=== PATIENT | female | born 1995 | race African-American/Black ===

== ENCOUNTER 2018-12-12 11:01 | Observation (INO) | payer BC, OTHER ==
[~2018-12-12] VITALS: Ht 180.3 cm; Wt 112.5 kg
[~2018-12-12 11:01] MED LIST: DESO1TAB4 PO; METR500T PO
[2018-12-12] MEDS ORDERED: CIPR500T78 PO (12:10)
--- NOTE | 2018-12-12 13:22 | ED Head Injury ---
General Chief Complaint: Trauma-Non Activation Stated Complaint: LOSS OF CONSCIOUSNESS Nursing Triage Note: PT FELL IN SHOWER PASSED OUT HEAD AND NECK HURT, STATES NOT FEELING WELL Source: patient Exam Limitations: no limitations History of Present Illness Date Seen by Provider: Dec 12, 2018 Time Seen by Provider: 13:22 Initial Comments 23-year-old female patient presents to the emergency department with complaints of "passing out" while in the shower this a.m. Patient reports headache and neck pain. Also reports overall not feeling well. Allergies and Home Medications Allergies Coded Allergies: No Known Drug Allergies (Unverified , 08/15/15) Home Medications Ciprofloxacin HCl 500 Mg Tablet, 500 MG PO BID, (Reported) Past Mmmlffn-Ogzmie-Diveph Hx Patient Social History Alcohol Use: Occasionally Uses Recreational Drug Use: No Smoking Status: Never a Smoker Recent Foreign Travel: No Contact w/Someone Who Travel: No Recent Infectious Disease Expo: No Recent Hopitalizations: No Past Medical History Surgeries: Yes Gallbladder, Orthopedic Respiratory: No Cardiac: No Neurological: No Reproductive Disorders: No Gastrointestinal: No Musculoskeletal: No Cancer: No Psychosocial: Yes ADD/ADHD Physical Exam Vital Signs Vital Signs - First Documented 12/12/18 12:04 Temp 97.9 Pulse 89 Resp 18 B/P (MAP) 139/79 (99) Pulse Ox 98 Capillary Refill : Less Than 3 Seconds Height, Weight, BMI Height: 5'11.00" Weight: 225lbs. oz. 102.428985di; BMI Method:Stated Progress/Results/Core Measures Results/Orders Lab Results Laboratory Tests Test 12/12/18 13:45 12/12/18 14:06 Range/Units Urine Color YELLOW Urine Clarity CLEAR Urine pH 6 5-9 Urine Specific [place] 1.020 1.016-1.022 Urine Protein 1+ H NEGATIVE Urine Glucose (UA) NEGATIVE NEGATIVE Urine Ketones NEGATIVE NEGATIVE Urine Nitrite NEGATIVE NEGATIVE Urine Bilirubin NEGATIVE NEGATIVE Urine Urobilinogen NORMAL NORMAL MG/DL Urine Leukocyte Esterase NEGATIVE NEGATIVE Urine RBC (Auto) 2+ H NEGATIVE Urine RBC 2-5 H /HPF Urine WBC NONE /HPF Urine Squamous Epithelial Cells 10-25 H /HPF Urine Crystals NONE /LPF Urine Bacteria TRACE /HPF Urine Casts NONE /LPF Urine Mucus LARGE H /LPF Urine Culture Indicated NO Urine Opiates Screen NEGATIVE NEGATIVE Urine Oxycodone Screen NEGATIVE NEGATIVE Urine Methadone Screen NEGATIVE NEGATIVE Urine Propoxyphene Screen NEGATIVE NEGATIVE Urine Barbiturates Screen NEGATIVE NEGATIVE Ur Tricyclic Antidepressants Screen NEGATIVE NEGATIVE Urine Phencyclidine Screen NEGATIVE NEGATIVE Urine Amphetamines Screen NEGATIVE NEGATIVE Urine Methamphetamines Screen NEGATIVE NEGATIVE Urine Benzodiazepines Screen NEGATIVE NEGATIVE Urine Cocaine Screen NEGATIVE NEGATIVE Urine Cannabinoids Screen POSITIVE H NEGATIVE White Blood Count 5.4 4.3-11.0 10^3/uL Red Blood Count 4.74 4.35-5.85 10^6/uL Hemoglobin 14.2 11.5-16.0 G/DL Hematocrit 41 35-52 % Mean Corpuscular Volume 86 80-99 FL Mean Corpuscular Hemoglobin 30 25-34 PG Mean Corpuscular Hemoglobin Concent 35 32-36 G/DL Red Cell Distribution Width 12.1 10.0-14.5 % Platelet Count 333 130-400 10^3/uL Mean Platelet Volume 9.3 7.4-10.4 FL Neutrophils (%) (Auto) 37 L 42-75 % Lymphocytes (%) (Auto) 55 H 12-44 % Monocytes (%) (Auto) 7 0-12 % Eosinophils (%) (Auto) 1 0-10 % Basophils (%) (Auto) 0 0-10 % Neutrophils # (Auto) 2.0 1.8-7.8 X 10^3 Lymphocytes # (Auto) 2.9 1.0-4.0 X 10^3 Monocytes # (Auto) 0.4 0.0-1.0 X 10^3 Eosinophils # (Auto) 0.1 0.0-0.3 10^3/uL Basophils # (Auto) 0.0 0.0-0.1 10^3/uL Sodium Level 141 135-145 MMOL/L Potassium Level 3.8 3.6-5.0 MMOL/L Chloride Level 106 98-107 MMOL/L Carbon Dioxide Level 28 21-32 MMOL/L Anion Gap 7 5-14 MMOL/L Blood Urea Nitrogen 10 7-18 MG/DL Creatinine 0.90 0.60-1.30 MG/DL Estimat Glomerular Filtration Rate > 60 BUN/Creatinine Ratio 11 Glucose Level 85 70-105 MG/DL Calcium Level 9.7 8.5-10.1 MG/DL Corrected Calcium 8.5-10.1 MG/DL Total Bilirubin 0.4 0.1-1.0 MG/DL Aspartate Amino Transf (AST/SGOT) 24 5-34 U/L Alanine Aminotransferase (ALT/SGPT) 28 0-55 U/L Alkaline Phosphatase 72 40-136 U/L Troponin I < 0.028 <0.028 NG/ML Total Protein 8.0 6.4-8.2 GM/DL Albumin 4.6 H 3.2-4.5 GM/DL TSH Baxter Testing 0.93 0.35-4.94 UIU/ML Acetaminophen Level < 10 L 10-30 UG/ML Serum Alcohol < 10 <10 MG/DL My Orders Orders - GEMMA DENNIS Acetaminophen (12/12/18 13:38) Alcohol (12/12/18 13:38) Cbc With Automated Diff (12/12/18 13:38) Comprehensive Metabolic Panel (12/12/18 13:38) Drug Screen Stat (Urine) (12/12/18 13:38) Thyroid Analyzer (12/12/18 13:38) Troponin I (12/12/18 13:38) Ua Culture If Indicated (12/12/18 13:38) Ct Head/Cervical Spine Wo (12/12/18 13:38) Saline Lock/Iv-Start (12/12/18 13:38) Urine Bedside (12/12/18 13:38) Ekg Tracing (12/12/18 13:38) Ondansetron Injection (Zofran Injectio (12/12/18 13:45) Acetaminophen Tablet (Tylenol Tablet) (12/12/18 13:38) Ns Iv 1000 Ml (Sodium Chloride 0.9%) (12/12/18 13:38) Chest 1 View, Ap/Pa Only (12/12/18 13:41) Ondansetron Injection (Zofran Injectio (12/12/18 15:30) Ns Iv 1000 Ml (Sodium Chloride 0.9%) (12/12/18 15:18) Medications Given in ED Current Medications Medications Dose Ordered Sig/Tulio Route Start Time Stop Time Status Last Admin Dose Admin Ondansetron HCl 4 mg ONCE ONCE IVP 12/12/18 13:45 12/12/18 13:46 DC 12/12/18 14:10 4 MG Ondansetron HCl 4 mg ONCE ONCE IVP 12/12/18 15:30 12/12/18 15:31 DC 12/12/18 15:59 4 MG Vital Signs/I&O 12/12/18 12:04 Temp 97.9 Pulse 89 Resp 18 B/P (MAP) 139/79 (99) Pulse Ox 98 Blood Pressure Mean: 99 Initial ECG Impression Date: Dec 12, 2018 Initial ECG Impression Time: 13:58 Initial ECG Rate: 77 Initial ECG Rhythm: Normal Sinus Initial ECG Intervals: Normal Initial ECG Impression: Normal Initial ECG Comparisson: No Previous ECG Available Comment ECG reviewed and discussed with Dr. Wilson. Departure Impression Primary Impression: Seizure Disposition: 09 ADMITTED INPATIENT Condition: Stable Admissions Decision to Admit Reason: Admit from ER (General) Decision to Admit/Date: Dec 12, 2018 Time/Decision to Admit Time: 16:25 Departure-Patient Inst. Referrals: [facility] (PCP) Primary Care Physician GEMMA DENNIS Dec 12, 2018 13:22
[2018-12-12] MEDS ORDERED: NS IV 1000 ML 1,000 ML IV SCH ×2 (13:38→15:18)
[2018-12-12] MEDS ORDERED: ACETAMINOPHEN 500 MG TAB (TYLENOL) PO STA (13:38)
[2018-12-12] MEDS ORDERED: ONDANSETRON 4 MG/2 ML (SDV) Z0FRAN IVP ONE ×2 (13:45→15:30)
[2018-12-12 13:52] LABS: BILIRUBIN,URINE NEGATIVE (NEGATIVE); CLARITY,URINE CLEAR; COLOR,URINE YELLOW; GLUCOSE, URINE (UA) NEGATIVE (NEGATIVE); KETONES,URINE NEGATIVE (NEGATIVE); LEUKOCYTE ESTERASE ,URINE NEGATIVE (NEGATIVE); NITRITE,URINE NEGATIVE (NEGATIVE); PH,URINE 6 (5-9); PROTEIN,URINE 1+ (NEGATIVE); UROBILINOGEN,URINE NORMAL (NORMAL)
[2018-12-12 14:09] LABS: AMPHETAMINE SCREEN, URINE NEGATIVE (NEGATIVE); BARBITURATE SCREEN URINE NEGATIVE (NEGATIVE); BENZODIAZEPINES SCREEN URINE NEGATIVE (NEGATIVE); CANNABINOID SCREEN, URINE POSITIVE (NEGATIVE); COCAINE SCREEN URINE NEGATIVE (NEGATIVE); METHADONE STAT NEGATIVE (NEGATIVE); METHAMPHETAMINE SCREEN URINE S NEGATIVE (NEGATIVE); OPIATE SCREEN URINE NEGATIVE (NEGATIVE); OXYCODONE STAT NEGATIVE (NEGATIVE); PROPOXYPHENE STAT NEGATIVE (NEGATIVE); TRICYCLIC ANTIDEPRESSANTS SCRE NEGATIVE (NEGATIVE)
[2018-12-12 14:12] LABS: BASOPHILS % (AUTO) 0 % (0-10); EOSINOPHILS # (AUTO) 0.1 10^3/uL (0.0-0.3); EOSINOPHILS % (AUTO) 1 % (0-10); HEMATOCRIT 41 % (35-52); HEMOGLOBIN 14.2 G/DL (11.5-16.0); LYMPHOCYTES # (AUTO) 2.9 X 10^3 (1.0-4.0); LYMPHOCYTES % (AUTO) 55 % (12-44); MEAN CORPUSCULAR HEMOGLOBIN 30 PG (25-34); MEAN CORPUSCULAR HGB CONC 35 G/DL (32-36); MEAN CORPUSCULAR VOLUME 86 FL (80-99); MEAN PLATELET VOLUME 9.3 FL (7.4-10.4); MONOCYTES # (AUTO) 0.4 X 10^3 (0.0-1.0); MONOCYTES % (AUTO) 7 % (0-12); NEUTROPHILS % (AUTO) 37 % (42-75); PLATELET COUNT 333 10^3/uL (130-400); RED CELL DISTRIBUTION WIDTH 12.1 % (10.0-14.5); WHITE BLOOD COUNT 5.4 10^3/uL (4.3-11.0)
[2018-12-12 14:15] LABS: BACTERIA,URINE TRACE /HPF
[2018-12-12 14:31] LABS: ALANINE AMINOTRANSFERASE 28 U/L (0-55); ALBUMIN 4.6 GM/DL (3.2-4.5); ALKALINE PHOSPHATASE 72 U/L (40-136); BILIRUBIN,TOTAL 0.4 MG/DL (0.1-1.0); BUN/CREATININE RATIO 11; CALCIUM 9.7 MG/DL (8.5-10.1); CARBON DIOXIDE 28 MMOL/L (21-32); CHLORIDE 106 MMOL/L (98-107); GFR ESTIMATED > 60; GLUCOSE 85 MG/DL (70-105); POTASSIUM 3.8 MMOL/L (3.6-5.0); SODIUM 141 MMOL/L (135-145)
[2018-12-12 14:43] LABS: ACETAMINOPHEN < 10 UG/ML (10-30)
[2018-12-12 14:51] LABS: TSH (THYROID ANALYZER) 0.93 UIU/ML (0.35-4.94)
--- NOTE | 2018-12-12 16:47 | Diagnostic Imaging Report ---
PROCEDURE: CT head and CT cervical spine without contrast. TECHNIQUE: Multiple contiguous axial images were obtained through the brain and cervical spine without the use of intravenous contrast. Sagittal and coronal reformations through the cervical spine were then performed. INDICATION: Fall with right-sided head and neck pain. COMPARISON: No prior studies are available for comparison. FINDINGS: CT head: The ventricles and sulci are within normal limits. No sulcal effacement, midline shift or hemorrhage is detected. The cisterns are patent. The visualized paranasal sinuses are clear. IMPRESSION: No acute intracranial process is detected. CT cervical spine: Alignment is normal. No fracture or subluxation is seen. The prevertebral tissues are within normal limits. Odontoid is intact. IMPRESSION: No acute bony abnormality is detected. Dictated by: Dictated on workstation # [id number]
--- NOTE | 2018-12-12 16:47 | Diagnostic Imaging Report ---
INDICATION: Fall. Trauma. COMPARISON: 06/11/2011. FINDINGS: Single frontal view of the chest demonstrates normal heart size and pulmonary vascularity. The lungs are well aerated and clear. No large pleural effusion or pneumothorax is seen. The visualized osseous structures show no acute abnormalities. IMPRESSION: 1. No acute cardiopulmonary process. Dictated by: Dictated on workstation # [id number]
--- OUTSIDE RECORDS SUMMARY | 2018-12-12 17:10 | XMS REPORT ---
Author Chris Mccauley Organization [employer] Address Unknown Phone Unavailable Care Team Providers Care Acid Tester Name Role Phone Chris Baez CP Unavailable Allergies No Known Allergies Problems No Known Problems Medications Medication Code System Code Instructions Start Date End Date Status Dosage Vyvanse [facility] [address]-59 30 MG Orally Once a day Oct 07, 2015 1 capsule in the morning Results No Known Results Summary Purpose [employer] Submission
--- OUTSIDE RECORDS SUMMARY | 2018-12-12 17:10 | XMS REPORT ---
Author Author Sherrie Byers Organization [employer] Address Unknown Phone Unavailable Care Team Providers Care Shaker Washer Name Role Phone Sherrie Byers CP Unavailable Allergies, Adverse Reactions, Alerts Substance Reaction Event Type N.K.D.A. Info Not Available Non Drug Allergy Problems Problem Type Condition Code Onset Dates Condition Status Assessment Attention and concentration deficit R41.840 Active Medications Medication Code System Code Instructions Start Date End Date Status Dosage Vyvanse [facility] [address]-21 30 MG Orally Once a day Oct 07, 2015 1 capsule in the morning Multivitamin Gummies Adult [facility] [address] Orally not defined Procedures Procedure Coding System Code Date DSCHRG MED/CURRENT MED MERGE CPT-4 1111F Oct 07, 2015 NEW PATIENTLEVEL III CPT-4 33476 Oct 07, 2015 Vital Signs Date/Time: Oct 07, 2015 Blood Pressure Systolic 110 mm Hg Cardiac Monitoring Heart Rate 78 /min Temperature 97.5 F BMI 34.97 Index Weight 230 lbs Height 68 in Blood Pressure Diastolic 78 mm Hg Results No Known Results Summary Purpose [employer] Submission
--- OUTSIDE RECORDS SUMMARY | 2018-12-12 17:10 | XMS REPORT ---
Author Author JENI MALIK [facility] Address [address] [place] [address] Care Team Providers Care Gambling Broker Name Role Phone JENI MALIK Unavailable PROBLEMS Type Condition ICD9-CM Code KLD89-GT Code Onset Dates Condition Status SNOMED Code Problem PCOS (polycystic ovarian syndrome) E28.2 Active 09344231 Problem Attention 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 Active 59070907 Problem Insomnia, unspecified type G47.00 Active 348802749 ALLERGIES No Information ENCOUNTERS Encounter Location Date Diagnosis [facility] [id number] [place] [id number] Oct, [facility] [address] [address] Sep, Attention 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 ; Hidradenitis suppurativa L73.2 ; PCOS (polycystic ovarian syndrome) E28.2 and High risk medication use Z79.899 [facility] [id number] [place] [phone] Sep, Dental examination Z01.20 [facility] [id number] [place] [address] Sep, Mouth pain K13.79 [facility] [address] [address] Sep, Attention 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 [facility] [id number] [place] [address] Aug, Attention 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 [facility] [address] [address] Jul, Attention 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 and High risk medication use Z79.899 [place] [id number] [place] [phone] 27 Jun, 2018 Attention 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 and Missed menses N92.6 [place] [address] [address] 14 Jun, 2018 Pneumonia of right lung due to infectious organism, unspecified part of lung J18.9 [place] [address] [address] Apr, Insomnia, unspecified type G47.00 [place] [address] [address] Apr, Nonintractable episodic headache, unspecified headache type R51 ; Fatigue, unspecified type R53.83 ; Exposure to residence or prolonged visit at high altitude, initial encounter W94.11XA and Insomnia, unspecified type G47.00 [place] [id number] [place] [address] Aug, Dental examination Z01.20 [place] [id number] [place] [address] May, [place] [id number] [place] [phone] May, Physical exam V70.9 IMMUNIZATIONS No Known Immunizations SOCIAL HISTORY Never Assessed REASON FOR VISIT dental referral from walk-in [facility] Activity Details Follow Up prn Reason: VITAL SIGNS MEDICATIONS Medication Instructions Dosage Frequency Start Date End Date Duration Status Methylphenidate HCl ER 27 MG Orally Once a day 1 tablet in the morning 24h Sep, 28 days Active RESULTS No Results PROCEDURES Procedure Date Ordered Result Body Site INTRAORL-PERIAPICAL 1 FILM 69773 Sep 10, 2018 SCREENING OF A PATIENT Sep 10, 2018 Billing Notes on claim Sep 10, 2018 INSTRUCTIONS MEDICATIONS ADMINISTERED No Known Medications MEDICAL (GENERAL) HISTORY Type Description Date Medical History ADHD Medical History hidradenitis supprativa Surgical History cholecystectomy Surgical History Left arm repair Hospitalization History Surgery
--- OUTSIDE RECORDS SUMMARY | 2018-12-12 17:10 | XMS REPORT ---
Author Author Sherrie Byers Organization [employer] Address Unknown Phone Unavailable Care Team Providers Care Weight Analyst Name Role Phone Sherrie Byers CP Unavailable Allergies, Adverse Reactions, Alerts Substance Reaction Event Type N.K.D.A. Info Not Available Non Drug Allergy Problems Problem Type Condition Code Onset Dates Condition Status Assessment Attention and concentration deficit R41.840 Active Medications Medication Code System Code Instructions Start Date End Date Status Dosage Multivitamin Gummies Adult [facility] [address] Orally not defined Vyvanse [facility] [address]-95 30 MG Orally Once a day Oct 07, 2015 1 capsule in the morning Procedures Procedure Coding System Code Date DSCHRG MED/CURRENT MED MERGE CPT-4 1111F May 12, 2016 ESTAB PATIENTLEVEL III CPT-4 98530 May 12, 2016 Vital Signs Date/Time: May 12, 2016 Blood Pressure Diastolic 82 mm Hg Blood Pressure Systolic 138 mm Hg Temperature 98.1 F BMI 35.27 Index Weight 232 lbs Height 68 in Results No Known Results Summary Purpose eClinicalWorks Submission
--- OUTSIDE RECORDS SUMMARY | 2018-12-12 17:10 | XMS REPORT ---
Author Author DIANA MORENO [facility] Address [address] [place] [address] Care Team Providers Care It Project Coordinator Name Role Phone DIANA MORENO Unavailable PROBLEMS Type Condition ICD9-CM Code JMR52-MI Code Onset Dates Condition Status SNOMED Code Problem Missed menses N92.6 Active 88617252 Problem Attention 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 Active 49858140 Problem Insomnia, unspecified type G47.00 Active 519188327 ALLERGIES No Known Allergies ENCOUNTERS Encounter Location Date Diagnosis [place] [address] [address] Sep, [place] [address] [address] 04 Sep, 2018 Dental examination Z01.20 [facility] [address] [address] Sep, Mouth pain K13.79 [place] [address] [address] Sep, Attention 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 [place] [address] [address] Aug, Attention 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 [place] [address] [address] Jul, Attention 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 and High risk medication use Z79.899 [place] [address] [address] Jun, Attention 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 and Missed menses N92.6 [facility] [address] [place] [address] 14 Jun, 2018 Pneumonia of right lung due to infectious organism, unspecified part of lung J18.9 [place] [id number] [place] [address] Apr, Insomnia, unspecified type G47.[address] [address] Apr, Nonintractable episodic headache, unspecified headache type R51 ; Fatigue, unspecified type R53.83 ; Exposure to residence or prolonged visit at high altitude, initial encounter W94.11XA and Insomnia, unspecified type G47.00 [place] [id number] [place] [address] Aug, Dental examination Z01.20 [place] [id number] [place] [address] May, [place] [id number] [place] [address] May, Physical exam V70.9 IMMUNIZATIONS No Known Immunizations SOCIAL HISTORY Never Assessed REASON FOR VISIT Tooth pain on right bottom jaw, pain is pulsating - SELENE Ruiz PLAN OF CARE Activity Details Follow Up see dentist CINDY Reason: VITAL SIGNS Height 70 in 2018-09-10 Weight 239.2 lbs 2018-09-10 Temperature 97.8 degrees Fahrenheit 2018-09-10 Heart Rate 80 bpm 2018-09-10 Respiratory Rate 18 2018-09-10 BMI 34.32 kg/m2 2018-09-10 Blood pressure systolic 120 mmHg 2018-09-10 Blood pressure diastolic 86 mmHg 2018-09-10 MEDICATIONS Medication Instructions Dosage Frequency Start Date End Date Duration Status Methylphenidate HCl ER 27 MG Orally Once a day 1 tablet in the morning 24h Sep, 28 days Active Amoxicillin 875 MG Orally every 12 hrs 1 tablet 12h Sep, 10 day (s) Active RESULTS No Results PROCEDURES No Known procedures INSTRUCTIONS MEDICATIONS ADMINISTERED No Known Medications MEDICAL (GENERAL) HISTORY Type Description Date Medical History ADHD Surgical History cholecystectomy Surgical History Left arm repair Hospitalization History Surgery
--- OUTSIDE RECORDS SUMMARY | 2018-12-12 17:11 | XMS REPORT ---
Author Author SHIMA RETANA [facility] Address Unknown Care Team Providers Care Instructor Warper Name Role Phone SHIMA RETANA Unavailable PROBLEMS Type Condition ICD9-CM Code PWG79-YR Code Onset Dates Condition Status SNOMED Code Assessment Dental examination Z01.20 Aug, Active 485578889 ALLERGIES Substance Reaction Event Type Date Status N.K.D.A. Unknown Non Drug Allergy Aug, Unknown SOCIAL HISTORY No smoking Hx information available PLAN OF CARE VITAL SIGNS Height 70 in 2016-08-09 Blood pressure systolic 118 mmHg 2016-08-09 Blood pressure diastolic 83 mmHg 2016-08-09 MEDICATIONS Medication Instructions Dosage Frequency Start Date End Date Duration Status Amoxicillin 500 MG Orally four times a day 1 tablet 6h Aug,Aug 7 days Active [place] 5-325 MG Orally every 6 hrs 1 tablet as needed 6h Aug,Aug 4 days Active Vyvanse 30 MG Orally Once a day 1 capsule in the morning 24h Active RESULTS No Results PROCEDURES Procedure Date Ordered Related Diagnosis Body Site LTD ORAL EVALUATION - PROBLEM FOCUS Aug 09, 2016 INTRAORL-PERIAPICAL 1 FILM 25840 Aug 09, 2016 BITEWINGS - TWO FILMS Aug 09, 2016 INTRAORL-PERIAPICAL EA ADD FILM Aug 09, 2016 IMMUNIZATIONS No Known Immunizations
--- OUTSIDE RECORDS SUMMARY | 2018-12-12 17:11 | XMS REPORT ---
Author Author GIGI GERONIMO Organization [facility] Address [address] [place] [address] Care Team Providers Care Disaster Recovery Specialist Name Role Phone GIGI GERONIMO Unavailable PROBLEMS Type Condition ICD9-CM Code TMY88-GG Code Onset Dates Condition Status SNOMED Code Problem Insomnia, unspecified type G47.00 Active 223207194 ALLERGIES No Known Allergies ENCOUNTERS Encounter Location Date Diagnosis [place] [address] [address] Apr, Insomnia, unspecified type G47.[address] [address] Apr, Nonintractable episodic headache, unspecified headache type R51 ; Fatigue, unspecified type R53.83 ; Exposure to residence or prolonged visit at high altitude, initial encounter W94.11XA and Insomnia, unspecified type G47.00 [place] [id number] [place] [address] Aug, Dental examination Z01.20 [facility] [place] [address] [address] May, [facility] [place] [address] [address] May, Physical exam V70.9 IMMUNIZATIONS Vaccine Route Administration Date Status TORADOL (IM) 30 MG/ML (UP TO 15 MG) IM Intramuscular May 01, 2018 Administered SOCIAL HISTORY Never Assessed REASON FOR VISIT Fatigue, states she thinks it might be altitude sickness, head pressure, blurry vision, lack of sleep and appetite. LUCIUS Linares PLAN OF CARE Activity Details Follow Up prn Reason:headache, fatigue VITAL SIGNS Height 70 in 2018-05-01 Weight 225.4 lbs 2018-05-01 Temperature 98.3 degrees Fahrenheit 2018-05-01 Heart Rate 82 bpm 2018-05-01 Respiratory Rate 18 2018-05-01 BMI 32.34 kg/m2 2018-05-01 Blood pressure systolic 124 mmHg 2018-05-01 Blood pressure diastolic 86 mmHg 2018-05-01 MEDICATIONS Medication Instructions Dosage Frequency Start Date End Date Duration Status Vyvanse 30 MG Orally Once a day 1 capsule in the morning 24h Active Sprintec 28 0.25-35 MG-MCG Orally Once a day 1 tablet 24h Active Zolpidem Tartrate 10 mg Orally Once a day 1 tablet at bedtime as needed 24h Apr, 05 days Active RESULTS No Results PROCEDURES Procedure Date Ordered Result Body Site COMPLETE CBC W/AUTO DIFF WBC May 01, 2018 COMPREHEN METABOLIC PANEL May 01, 2018 THER/PROPH/DIAG INJ, SC/IM May 01, 2018 CHORIONIC GONADOTROPIN ASSAY May 01, 2018 ASSAY OF FREE THYROXINE May 01, 2018 ASSAY THYROID STIM HORMONE May 01, 2018 TORADOL (IM) 30 MG/ML (UP TO 15 MG) May 01, 2018 VENIPUNCT, ROUTINE* May 01, 2018 INSTRUCTIONS MEDICATIONS ADMINISTERED No Known Medications MEDICAL (GENERAL) HISTORY Type Description Date Medical History ADHD Surgical History cholecystectomy Surgical History Left arm repair Hospitalization History Surgery
--- OUTSIDE RECORDS SUMMARY | 2018-12-12 17:11 | XMS REPORT ---
Author Author NEMESIO CHAN [facility] Address [address] [place] [address] Care Team Providers Care Automotive Shop Foreman Name Role Phone NEMESIO CHAN Unavailable PROBLEMS Type Condition ICD9-CM Code KWO60-DZ Code Onset Dates Condition Status SNOMED Code Problem Missed menses N92.6 Active 58711238 Problem Attention 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 Active 72262723 Problem Insomnia, unspecified type G47.00 Active 243322353 ALLERGIES No Known Allergies ENCOUNTERS Encounter Location Date Diagnosis [facility] [address] [address] Jun, Attention 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 and Missed menses N92.6 [facility] [address] [address] 14 Jun, 2018 Pneumonia of right lung due to infectious organism, unspecified part of lung J18.9 [facility] [id number] [place] [address] Apr, Insomnia, unspecified type G47.00 [facility] [address] [address] Apr, Nonintractable episodic headache, unspecified headache type R51 ; Fatigue, unspecified type R53.83 ; Exposure to residence or prolonged visit at high altitude, initial encounter W94.11XA and Insomnia, unspecified type G47.00 [facility] [address] [address] Aug, Dental examination Z01.20 [facility] [address] [phone] May, [facility] [address] [facility] [id number] [address] 18 May, 2016 Physical exam V70.9 IMMUNIZATIONS No Known Immunizations SOCIAL HISTORY Never Assessed REASON FOR VISIT est care-Jessica, Would like to discuss ADHD medication PLAN OF CARE Activity Details Follow Up 2-4wk Reason:PAP/ADD VITAL SIGNS Height 70 in 2018-07-04 Weight 231.5 lbs 2018-07-04 Temperature 97.5 degrees Fahrenheit 2018-07-04 Heart Rate 88 bpm 2018-07-04 Respiratory Rate 18 2018-07-04 BMI 33.21 kg/m2 2018-07-04 Blood pressure systolic 110 mmHg 2018-07-04 Blood pressure diastolic 72 mmHg 2018-07-04 MEDICATIONS Medication Instructions Dosage Frequency Start Date End Date Duration Status Sprintec 28 0.25-35 MG-MCG Orally Once a day 1 tablet 24h Active RESULTS Name Result Date Reference Range TEST, URINE (IN HOUSE) 2018-07-04 RESULTS Negative Lot # [id number] Control + Exp date 12/2019 PROCEDURES Procedure Date Ordered Result Body Site URINE TEST Jul 04, 2018 INSTRUCTIONS MEDICATIONS ADMINISTERED No Known Medications MEDICAL (GENERAL) HISTORY Type Description Date Medical History ADHD Surgical History cholecystectomy Surgical History Left arm repair Hospitalization History Surgery
--- OUTSIDE RECORDS SUMMARY | 2018-12-12 17:11 | XMS REPORT ---
Author [facility] Address [address] [place] [address] Care Team Providers Care Rice Farmworker Name Role Phone NEMESIO CHAN Unavailable PROBLEMS Type Condition ICD9-CM Code AGI12-AO Code Onset Dates Condition Status SNOMED Code Problem Missed menses N92.6 Active 39526941 Problem Attention 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 Active 77669340 Problem Insomnia, unspecified type G47.00 Active 902606762 ALLERGIES No Information ENCOUNTERS Encounter Location Date Diagnosis [facility] [place] [address] [address] Sep, [facility] [place] [id number] [place] [address] Aug, Attention 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 [facility] [place] [address] [address] Jul, Attention 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 and High risk medication use Z79.899 [facility] [place] [id number] [place] [address] Jun, Attention 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 and Missed menses N92.6 [facility] [id number] [place] [address] 14 Jun, 2018 Pneumonia of right lung due to infectious organism, unspecified part of lung J18.9 [facility] [place] [id number] [place] [address] Apr, Insomnia, unspecified type G47.00 [facility] [place] [id number] [place] [address] Apr, Nonintractable episodic headache, unspecified headache type R51 ; Fatigue, unspecified type R53.83 ; Exposure to residence or prolonged visit at high altitude, initial encounter W94.11XA and Insomnia, unspecified type G47.00 [facility] [place] [address] [facility] [id number] [place] [address] Aug, Dental examination Z01.20 [facility] [address] [id number] [address] May, [facility] [address] [facility] [id number] [address] May, Physical exam V70.9 IMMUNIZATIONS No Known Immunizations SOCIAL HISTORY Never Assessed REASON FOR VISIT Concerta Refill PLAN OF CARE VITAL SIGNS MEDICATIONS Medication Instructions Dosage Frequency Start Date End Date Duration Status Methylphenidate HCl ER 27 MG Orally Once a day 1 tablet in the morning 24h Aug, 28 days Active RESULTS No Results PROCEDURES No Known procedures INSTRUCTIONS MEDICATIONS ADMINISTERED No Known Medications MEDICAL (GENERAL) HISTORY Type Description Date Medical History ADHD Surgical History cholecystectomy Surgical History Left arm repair Hospitalization History Surgery
--- OUTSIDE RECORDS SUMMARY | 2018-12-12 17:11 | XMS REPORT ---
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 Active 91368275 Problem Insomnia, unspecified type G47.00 Active 361861731 ALLERGIES No Known Allergies ENCOUNTERS Encounter Location Date Diagnosis [facility] [address] [address] Jun, Attention 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 and Missed menses N92.6 [facility] [address] [address] 14 Jun, 2018 Pneumonia of right lung due to infectious organism, unspecified part of lung J18.9 [facility] [id number] [place] [address] Apr, Insomnia, unspecified type G47.00 [facility] [address] [address] Apr, Nonintractable episodic headache, unspecified headache type R51 ; Fatigue, unspecified type R53.83 ; Exposure to residence or prolonged visit at high altitude, initial encounter W94.11XA and Insomnia, unspecified type G47.00 [facility] [address] [address] Aug, Dental examination Z01.20 [facility] [address] [address] May, [facility] [address] [facility] [id number] [place] [address] May, Physical exam V70.9 IMMUNIZATIONS No Known Immunizations SOCIAL HISTORY Never Assessed REASON FOR VISIT chest congestion, cough and shortness of breath x1 week JStrasserRN PLAN OF CARE Activity Details Follow Up if not improving with PCP or reg follow up Reason: VITAL SIGNS Height 70 in 2018-06-21 Weight 232.2 lbs 2018-06-21 Temperature 98.4 degrees Fahrenheit 2018-06-21 Heart Rate 76 bpm 2018-06-21 Respiratory Rate 20 2018-06-21 Oximetry 92 % 2018-06-21 BMI 33.31 kg/m2 2018-06-21 Blood pressure systolic 112 mmHg 2018-06-21 Blood pressure diastolic 80 mmHg 2018-06-21 MEDICATIONS Medication Instructions Dosage Frequency Start Date End Date Duration Status PredniSONE 20 mg Orally Once a day 2 tablet 24h Jun, Jun, 5 days Active Azithromycin 250 MG Orally Once a day as directed 24h Jun,Jun 5 day(s) Active Sprintec 28 0.25-35 MG-MCG Orally Once a day 1 tablet 24h Active Tessalon Perles 100 mg Orally Three times a day 1 capsule as needed 8h Jun, Jun, 5 days Active RESULTS No Results PROCEDURES No Known procedures INSTRUCTIONS MEDICATIONS ADMINISTERED No Known Medications MEDICAL (GENERAL) HISTORY Type Description Date Medical History ADHD Surgical History cholecystectomy Surgical History Left arm repair Hospitalization History Surgery
--- OUTSIDE RECORDS SUMMARY | 2018-12-12 17:11 | XMS REPORT ---
Author BAKARI Gaffney Organization [employer] Address Unknown Phone Unavailable Care Team Providers Care Wire Bender Name Role Phone BAKARI RIDDLE CP Unavailable Allergies No Known Allergies Problems No Known Problems Medications Medication Code System Code Instructions Start Date End Date Status Dosage Vyvanse [facility] [address]-60 30 MG Orally Once a day 1 capsule in the morning Results No Known Results Summary Purpose [employer] Submission
--- OUTSIDE RECORDS SUMMARY | 2018-12-12 17:11 | XMS REPORT ---
Author Author NEMESIO CHAN [facility] Address [address] [place] [address] Care Team Providers Care Field Marketing Associate Name Role Phone NEMESIO CHAN Unavailable PROBLEMS Type Condition ICD9-CM Code XKL42-ZG Code Onset Dates Condition Status SNOMED Code Problem Missed menses N92.6 Active 84382786 Problem Attention 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 Active 44161851 Problem Insomnia, unspecified type G47.00 Active 260663221 ALLERGIES No Information ENCOUNTERS Encounter Location Date Diagnosis [facility] [address] [address] Sep, [facility] [address] [address] Sep, Attention 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 [facility] [address] [address] Aug, Attention 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 [place] [address] [id number] [place] [address] Jul, Attention 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 and High risk medication use Z79.899 [facility] [id number] [place] [address] 27 Jun, 2018 Attention 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 and Missed menses N92.6 [facility] [id number] [place] [address] 14 Jun, 2018 Pneumonia of right lung due to infectious organism, unspecified part of lung J18.9 [facility] [id number] [place] [address] Apr, Insomnia, unspecified type G47.00 [facility] [address] [address] Apr, Nonintractable episodic headache, unspecified headache type R51 ; Fatigue, unspecified type R53.83 ; Exposure to residence or prolonged visit at high altitude, initial encounter W94.11XA and Insomnia, unspecified type G47.00 [place] [address], [place] [address] Aug, Dental examination Z01.20 [facility] [place] [id number] [address] May, [place] [id number] [address] May, Physical exam V70.9 IMMUNIZATIONS No Known Immunizations SOCIAL HISTORY Never Assessed REASON FOR VISIT Methypheidate resend PLAN OF CARE VITAL SIGNS MEDICATIONS Medication [...]
--- OUTSIDE RECORDS SUMMARY | 2018-12-12 17:11 | XMS REPORT ---
Author Sherrie Andrews [facility] e[employer] Address Unknown Phone Unavailable Care Team Providers Care Fire Alarm Mechanic Name Role Phone Sherrie Byers CP Unavailable Allergies, Adverse Reactions, Alerts Substance Reaction Event Type N.K.D.A. Info Not Available Non Drug Allergy Problems Problem Type Condition Code Onset Dates Condition Status Assessment Attention and concentration deficit R41.840 Active Assessment Encounter for test, result negative Z32.02 Active Problem Attention and concentration deficit R41.840 Active Assessment Encounter for general adult medical examination with abnormal findings Z00.01 Active Medications Medication Code System Code Instructions Start Date End Date Status Dosage Vyvanse [facility] [address]-67 30 MG Orally Once a day Oct 07, 2015 1 capsule in the morning Multivitamin Gummies Adult [facility] [address] Orally not defined Procedures Procedure Coding System Code Date [id number] YEARS CPT-4 99680 Aug 11, 2016 URINE TEST,WAIVED CPT-4 78430 Aug 11, 2016 Vital Signs Date/Time: Aug 11, 2016 Blood Pressure Systolic 122 mm Hg Cardiac Monitoring Heart Rate 84 /min Temperature 98.6 F BMI 33.45 Index Weight 220 lbs Height 68 in Blood Pressure Diastolic 70 mm Hg Results No Known Results Summary Purpose eClinicalWorks Submission
--- OUTSIDE RECORDS SUMMARY | 2018-12-12 17:11 | XMS REPORT | Continuity of Care Document ---
Author Author Ary PawanDell Adama [facility] Ary Galan [facility] Address Unknown Phone Unavailable Care Team Providers Care Register Of Wills Name Role Phone GIGI MCRAE M.D. PCP Insurance Providers Payer Name Policy Number Subscriber Name Relationship Workers Compensation [id number] Jenny Mcmahon 08 [employer] [id number] LisandroZeeh 03 Mother Chief Complaint and Reason for Visit Chief Complaint Abdominal Pain Reason for Visit [id number] Problems Active Problems Medical Problem Onset Date Status Acute tonsillitis Unknown Acute Amenorrhea 05/21/2014 Acute Attention deficit hyperactivity disorder 05/05/2011 Chronic Epigastric abdominal pain Unknown Acute Fever Unknown Acute Pelvic pain in female Unknown Acute Polycystic ovary syndrome Unknown Acute SCREEN FOR VENERAL DIS 05/21/2014 Acute Medications Current Home Medications Medication Dose Units Route Directions Days/Qty Instructions Start Date Lisdexamfetamine Dimesylate 30 Mg 30 Mg Oral Daily 12/19/15 Hydrocodone-Acetaminophen 1 Tab 1-2 Tab Oral Q4-6H as needed for Pain 15 12/19/15 Ondansetron 4 Mg 1-2 Tab Oral Every 6 Hours As Needed as needed for Nausea 15 12/19/15 Past Home Medications Medication Directions Ordered Status Atomoxetine Hcl 18 Mg Cap, 18 Mg Oral Noon 08/16/10 Discontinued Hydrocodone-Acetaminophen Tab, 1 Tab Oral Every 4 Hours As Needed 08/16/10 Discontinued Oxycodone W/ Acetaminophen 1 Tab Tab, 1 Tab Oral 4-6 Hours 06/24/11 Discontinued Ibuprofen 400 Mg Tab, 1 Tab Oral Three Times A Day 06/24/11 Discontinued Acetaminophen/Hydrocodone Bitart 7.5 Mg/15 Ml Liqd, 10 Ml Oral Every 8 Hours As Needed 10/01/13 Discontinued Social History Social History Problem Response Recorded Date/Time Smoking Status Former smoker 12/19/2015 5:20pm Query Response Start Date Stop Date Smoking Status Former smoker Hospital Discharge Instructions No hospital discharge instructions. Plan of Care Discharge Date 12/19/15 7:18pm Disposition 01 HOME, SELF-CARE Condition at Discharge Stable Instructions/Education Provided Abdominal Pain (ED) Prescriptions See Medication Section Referrals GIGI MCRAE M.D. - Additional Instructions/Education 1. Follow up with your doctor in 2-3 days. 2. Use pain medication as needed for pain, nausea medication as needed. Take Zantac 150mg (or generic - ranitidine) twice daily. 3. Rest and drink plenty of fluids. 4. Return to ER if worsening pain, repetitive vomiting, fever, or other new concerns. Functional Status No functional status results. Allergies, Adverse Reactions, Alerts Allergen Type Severity Reaction Status Last Updated No Known Drug Allergy Allergy Unknown Active 09/09/14 Immunizations No immunization records. Vital Signs Acute Vital Signs Vital Response Date/Time Blood Pressure 105/77 mm Hg 12/19/2015 6:46pm Blood Pressure Mean 86 mm Hg 12/19/2015 6:46pm Temperature (Fahrenheit) 98.1 degrees F (96.0 - 99.9) 12/19/2015 5:18pm Temperature (Calculated Celsius) 36.67727 degrees C 12/19/2015 5:18pm Temperature Source Oral 12/19/2015 5:18pm Pulse Pulse Rate (adult) 97 bpm (60 - 100) 06/15/2013 6:21pm Pulse Rate: ED 63 bpm 12/19/2015 6:46pm Respiratory Rate 16 breaths per minute (10 - 20) 12/19/2015 6:01pm Height (Feet) 5 ft 12/19/2015 5:18pm Height (Inches) 10 in. 12/19/2015 5:18pm Weight (Pounds) 215 lbs 12/19/2015 5:18pm Height 5 ft 10 in Weight 215 lb Body Mass Index 30.8 kg/m^2 Ambulatory Vital Signs Vital Response Date/Time Height 5 ft 9 in 05/21/2014 10:25am Weight 238 lbs 05/21/2014 10:25am Blood Pressure, Sitting, Left Arm 132/85 mm Hg 05/21/2014 10:25am Pulse Rate 90 bpm 05/21/2014 10:25am Body Surface Area 2.33 m2 05/21/2014 10:25am Body Mass Index 35.1 kg/m2 05/21/2014 10:25am Pulse Oximetry Pulse Oximetry 05/21/2014 10:25am Results Pending Laboratory Results Test Name Collection Date/Time Pending Microbiology Results Procedure Source Collection Date/Time Ambulatory Laboratory Results Test Name Result Units Flags Reference Result Date/Time Comments Chlamydia/GC Screen NEGATIVE 05/21/2014 1:28pm Procedures Procedure Status Date Provider(s) HYDRATION IV INFUSION INIT Completed 06/15/13 KIMBERLY MCLEAN M.D. THER/PROPH/DIAG INJ SC/IM Completed 10/01/13 [place] MAN M.D. THER/PROPH/DIAG INJ SC/IM Completed 10/01/13 [place] M.D. THER/PROPH/DIAG INJ SC/IM Completed 03/09/14 KIMBERLY MCLEAN M.D. Encounters Encounter Location Arrival/Admit Date Discharge/Depart Date Attending Provider Departed Emergency Room [facility] 12/19/15 5:17pm 7:18pm DAHLIA MAYES D.O. [facility] 11:07am GUERA LANDIS M.D Office Visit GUERA ARANDA 05/21/14 10:15am GUERA ARANDA M.D Registered Practice [facility] 05/21/14 10:15am GUERA ARANDA M.D [facility] 06/02/14 1:00am 2:57am KIMBERLY MCLEAN M.D. Departed Emergency Room [facility] 10/01/13 9:02pm 10:32pm [place] MAN M.D. Registered Referred [facility] 08/13/13 2:56pm STACIE DONALD M.D. Registered Referred [facility] 08/12/13 1:58pm STACIE DONALD M.D. Office Visit STACIE OLIVARESBANNER 08/12/13 1:00pm STACIE DONALD M.D. Registered Practice [facility] 08/12/13 1:00pm STACIE DONALD M.D. Departed Emergency Room [facility] 06/15/13 5:45pm 8:45pm KIMBERLY MCLEAN M.D. Recent Diagnosis
--- OUTSIDE RECORDS SUMMARY | 2018-12-12 17:11 | XMS REPORT ---
Author Author NEMESIO CHAN [facility] Address [address] [place] [address] Care Team Providers Care Stove Refinisher Name Role Phone NEMESIO CHAN Unavailable PROBLEMS Type Condition ICD9-CM Code FBO72-QC Code Onset Dates Condition Status SNOMED Code Problem Missed menses N92.6 Active 73652104 Problem Attention 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 Active 35887710 Problem Insomnia, unspecified type G47.00 Active 818113735 ALLERGIES No Information ENCOUNTERS Encounter Location Date Diagnosis [facility] [address] [address] Aug, [facility] [address] [address] Jul, Attention 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 and High risk medication use Z79.899 [facility] [address] [address] 27 Jun, 2018 Attention 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00 [facility] [address] [facility] [id number] [place] [address] Aug, Dental examination Z01.20 [facility] [address] [facility] [id number] [address] May, [facility] [address] [facility] [id number] [address] May, Physical exam V70.9 IMMUNIZATIONS No Known Immunizations SOCIAL HISTORY Never Assessed REASON FOR VISIT Controlled Med 07/29 PLAN OF CARE VITAL SIGNS MEDICATIONS Medication Instructions Dosage Frequency Start Date End Date Duration Status Methylphenidate HCl ER 27 MG Orally Once a day 1 tablet in the morning 24h Jul, Aug, 28 days Active RESULTS No Results PROCEDURES No Known procedures INSTRUCTIONS MEDICATIONS ADMINISTERED No Known Medications MEDICAL (GENERAL) HISTORY Type Description Date Medical History ADHD Surgical History cholecystectomy Surgical History Left arm repair Hospitalization History Surgery
--- OUTSIDE RECORDS SUMMARY | 2018-12-12 17:12 | XMS REPORT | Continuity of Care Document ---
Author Author [facility] Organization [facility] Address Unknown Phone Unavailable Allergies Active Description Code Type Severity Reaction Onset Reported/Identified Relationship to Patient Clinical Status Yes No Known Drug Allergies [id number] Drug Allergy Unknown N/A 08/15/2015 Medications There is no data. 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, bilateral Procedures Code Description [place] [address] REFRACTION 05/17/2017 78058 SPECIAL SERVICE/PROC/REPORT 05/17/2017 V2020 Vision svSpamLion frames purchases 05/18/2017 V2100 Lens spher single plano 4.00 05/18/2017 V2103 Spherocylindr 4.00d/12- 2.00d 05/18/2017 V2715 Prism lens/es 05/18/2017 V2750 Anti-reflective coating 05/18/2017 V2782 Lens, 1.54-1.65 p/1.60- 1.79g 05/18/2017 V2100 Lens spher single plano 4.00 06/12/2017 V2103 Spherocylindr 4.00d/12- 2.00d 06/12/2017 V2715 Prism lens/es 06/12/2017 V2762 Polarization, any lens 06/12/2017 V2782 Lens, 1.54-1.65 p/1.60- 1.79g 06/12/2017 V2020 Vision svcs frames purchases 07/17/2017 V2100 Lens spher single plano 4.00 07/17/2017 V2103 Spherocylindr 4.00d/12- 2.00d 07/17/2017 V2715 Prism lens/es 07/17/2017 V2744 Tint photochromatic lens/es 07/17/2017 V2750 Anti-reflective coating 07/17/2017 V2782 Lens, 1.54-1.65 p/1.60- 1.79g 07/17/2017 Results Test Result Range TEST, SERUM (QUAL) - 05/01/18 10:23 HCG, TOTAL, QL NEGATIVE See Note: Urine drug screening test - 12/12/18 13:45 Urine phencyclidine detection by screening method NEGATIVE NEGATIVE Urine benzodiazepines detection by screening method NEGATIVE NEGATIVE Urine cocaine detection NEGATIVE NEGATIVE Urine amphetamines detection by screening method NEGATIVE NEGATIVE Urine methamphetamine detection by screening method NEGATIVE NEGATIVE Urine cannabinoids detection by screening method POSITIVE NEGATIVE Urine opiates detection by screening method NEGATIVE NEGATIVE Urine barbiturates detection NEGATIVE NEGATIVE Screening urine tricyclic antidepressants detection NEGATIVE NEGATIVE Urine methadone detection by screening method NEGATIVE NEGATIVE Urine oxycodone detection NEGATIVE NEGATIVE Urine propoxyphene detection NEGATIVE NEGATIVE Complete urinalysis with reflex to culture - 12/12/18 13:45 Urine color determination YELLOW NRG Urine clarity determination CLEAR NRG Urine pH measurement by test strip 6 5-9 Specific gravity of urine by test strip 1.020 1.016- 1.022 Urine protein assay by test strip, semi-quantitative 1+ NEGATIVE Urine glucose detection by automated test strip NEGATIVE NEGATIVE Erythrocytes detection in urine sediment by light microscopy 2+ NEGATIVE Urine ketones detection by automated test strip NEGATIVE NEGATIVE Urine nitrite detection by test strip NEGATIVE NEGATIVE Urine total bilirubin detection by test strip NEGATIVE NEGATIVE Urine urobilinogen measurement by automated test strip (mass/volume) NORMAL NORMAL Urine leukocyte esterase detection by dipstick NEGATIVE NEGATIVE Automated urine sediment erythrocyte count by microscopy (number/high power field) [HPF] NRG Automated urine sediment leukocyte count by microscopy (number/high power field ) NONE NRG Bacteria detection in urine sediment by light microscopy TRACE NRG Squamous epithelial cells detection in urine sediment by light microscopy 1025 NRG Crystals detection in urine sediment by light microscopy NONE NRG Casts detection in urine sediment by light microscopy NONE NRG Mucus detection in urine sediment by light microscopy LARGE NRG Complete urinalysis with reflex to culture NO NRG Complete blood count (CBC) with automated white blood cell (WBC) differential - 12/12/18 14:06 Blood leukocytes automated count (number/volume) 5.4 10*3/uL 4.3-11.0 Blood erythrocytes automated count (number/volume) 4.74 10*6/uL 4.35-5.85 Venous blood hemoglobin measurement (mass/volume) 14.2 g/dL 11.5-16.0 Blood hematocrit (volume fraction) 41 % 35-52 Automated erythrocyte mean corpuscular volume 86 [foz_us] 80-99 Automated erythrocyte mean corpuscular hemoglobin (mass per erythrocyte) 30 pg 25-34 Automated erythrocyte mean corpuscular hemoglobin concentration measurement ( mass/volume) 35 g/dL 32-36 Automated erythrocyte distribution width ratio 12.1 % 10.0-14.5 Automated blood platelet count (count/volume) 333 10*3/uL 130-400 Automated blood platelet mean volume measurement 9.3 [foz_us] 7.4-10.4 Automated blood neutrophils/100 leukocytes 37 % 42-75 Automated blood lymphocytes/100 leukocytes 55 % 12-44 Blood monocytes/100 leukocytes 7 % 0-12 Automated blood eosinophils/100 leukocytes 1 % 0-10 Automated blood basophils/100 leukocytes 0 % 0-10 Blood neutrophils automated count (number/volume) 2.0 10*3 1.8-7.8 Blood lymphocytes automated count (number/volume) 2.9 10*3 1.0-4.0 Blood monocytes automated count (number/volume) 0.4 10*3 0.0-1.0 Automated eosinophil count 0.1 10*3/uL 0.0-0.3 Automated blood basophil count (count/volume) 0.0 10*3/uL 0.0-0.1 Comprehensive metabolic panel - 12/12/18 14:06 Serum or plasma sodium measurement (moles/volume) 141 mmol/L 135-145 Serum or plasma potassium measurement (moles/volume) 3.8 mmol/L 3.6-5.0 Serum or plasma chloride measurement (moles/volume) 106 mmol/L 98-107 Carbon dioxide 28 mmol/L 21-32 Serum or plasma anion gap determination (moles/volume) 7 mmol/L 5-14 Serum or plasma urea nitrogen measurement (mass/volume) 10 mg/dL 7-18 Serum or plasma creatinine measurement (mass/volume) 0.90 mg/dL 0.60-1.30 Serum or plasma urea nitrogen/creatinine mass ratio 11 NRG Serum or plasma creatinine measurement with calculation of estimated glomerular filtration rate > NRG Serum or plasma glucose measurement (mass/volume) 85 mg/dL 70-105 Serum or plasma calcium measurement (mass/volume) 9.7 mg/dL 8.5-10.1 Serum or plasma total bilirubin measurement (mass/volume) 0.4 mg/dL 0.1-1.0 Serum or plasma alkaline phosphatase measurement (enzymatic activity/volume) 72 U/L 40-136 Serum or plasma aspartate aminotransferase measurement (enzymatic activity/ volume) 24 U/L 5-34 Serum or plasma alanine aminotransferase measurement (enzymatic activity/volume ) 28 U/L 0-55 Serum or plasma protein measurement (mass/volume) 8.0 g/dL 6.4-8.2 Serum or plasma albumin measurement (mass/volume) 4.6 g/dL 3.2-4.5 Serum or plasma troponin i.cardiac measurement (mass/volume) - 12/12/18 14:06 Serum or plasma troponin i.cardiac measurement (mass/volume) < ng/ mL <0.028 Serum or plasma thyrotropin measurement by detection limit <=0.05 miu/l (units/ volume) - 12/12/18 14:06 Serum or plasma thyrotropin measurement by detection limit <=0.05 miu/l (units/ volume) 0.93 u[iU]/mL 0.35-4.94 Serum or plasma acetaminophen measurement (mass/volume) - 12/12/18 14:06 Serum or plasma acetaminophen measurement (mass/volume) < ug/mL 10-30 Serum or plasma ethanol measurement (mass/volume) - 12/12/18 14:06 Serum or plasma ethanol measurement (mass/volume) < mg/dL <10 Encounters ACCT No. Visit Date/Time Discharge Status Pt. Type Provider Facility Loc./Unit Complaint [id number] 08/15/2015 11:46:00 08/15/2015 14:06:00 DIS Emergency JULIAN CASTILLO APRN [facility] ER PELVIC PAIN/EXCESSIVE BLEEDING [id number] 12/12/2018 11:02:00 ACT Emergency GEMMA FLYNN [facility] ER LOSS OF CONSCIOUSNESS [id number] 07/17/2017 00:00:00 Document Registration [id number] 06/12/2017 00:00:00 Document Registration [id number] 05/18/2017 00:00:00 Document Registration [id number] 05/17/2017 16:15:00 Document Registration [id number] 12/04/2018 09:15:00 12/04/2018 23:59:59 CLS Outpatient NEMESIO CHAN [facility] [id number] 05/01/2018 09:20:00 Document Registration
--- NOTE | 2018-12-12 17:31 | NUR ---
attempt to call report busy will call back
--- NOTE | 2018-12-12 17:58 | NUR ---
KIRAN RUSSO admitted to room 407-1, with an admitting diagnosis of SEIZURE(NEW ONSET) , on 12/12/18 from ED via W/C, accompanied by FAMILY AND STAFF. KIRAN RUSSO introduced to surroundings, call light, bed controls, phone, TV, temperature control, lights, meal times, smoking policy, visitor policy, side rail policy, bathrooms and showers. Patient Rights given to patient in the handbook. KIRAN RUSSO verbalizes understanding that [facility] is not responsible for the loss or damage to any personal effects or valuables that are kept in the patients possession during their hospitalization.
[2018-12-12] MEDS ORDERED: NS IV 1000 ML 1,000 ML ONE (18:32)
[2018-12-12] MEDS: NS IV 1000 ML 1,000 ML IV SCH (18:35)
[2018-12-12] MEDS ORDERED: CATHETER FLUSH 10 ML SYR IV PRN (18:45)
[2018-12-12] MEDS ORDERED: ONDANSETRON 4 MG/2 ML (SDV) Z0FRAN IV PRN (18:45)
[2018-12-12] MEDS ORDERED: ACETAMINOPHEN 500 MG TAB (TYLENOL) PO PRN (18:45)
[2018-12-12] MEDS ORDERED: FLU QUADRIvalent (5+ YOA) 2018-2019 (AFLURIA) 0.5 ML IM ONE (19:15)
[2018-12-12 19:45] VITALS: BP 127/84
[2018-12-13 00:47] VITALS: BP 105/67
[2018-12-13] MEDS: NS IV 1000 ML 1,000 ML IV SCH ×2 (03:08→10:07)
[2018-12-13 04:00] VITALS: BP 99/56
[2018-12-13 05:43] LABS: BASOPHILS % (AUTO) 1 % (0-10); EOSINOPHILS # (AUTO) 0.1 10^3/uL (0.0-0.3); EOSINOPHILS % (AUTO) 3 % (0-10); HEMATOCRIT 36 % (35-52); HEMOGLOBIN 12.8 G/DL (11.5-16.0); LYMPHOCYTES # (AUTO) 2.7 X 10^3 (1.0-4.0); LYMPHOCYTES % (AUTO) 60 % (12-44); MEAN CORPUSCULAR HEMOGLOBIN 30 PG (25-34); MEAN CORPUSCULAR HGB CONC 35 G/DL (32-36); MEAN CORPUSCULAR VOLUME 87 FL (80-99); MEAN PLATELET VOLUME 9.4 FL (7.4-10.4); MONOCYTES # (AUTO) 0.4 X 10^3 (0.0-1.0); MONOCYTES % (AUTO) 10 % (0-12); NEUTROPHILS # (AUTO) 1.2 X 10^3 (1.8-7.8); NEUTROPHILS % (AUTO) 27 % (42-75); PLATELET COUNT 275 10^3/uL (130-400); RED CELL DISTRIBUTION WIDTH 11.8 % (10.0-14.5); WHITE BLOOD COUNT 4.4 10^3/uL (4.3-11.0)
[2018-12-13 06:05] LABS: ALANINE AMINOTRANSFERASE 23 U/L (0-55); ALBUMIN 3.7 GM/DL (3.2-4.5); ALKALINE PHOSPHATASE 58 U/L (40-136); BILIRUBIN,TOTAL 0.3 MG/DL (0.1-1.0); BUN/CREATININE RATIO 13; CALCIUM 8.4 MG/DL (8.5-10.1); CARBON DIOXIDE 21 MMOL/L (21-32); CHLORIDE 110 MMOL/L (98-107); CREATININE SERUM 0.77 MG/DL (0.60-1.30); GFR ESTIMATED > 60; GLUCOSE 89 MG/DL (70-105); POTASSIUM 3.8 MMOL/L (3.6-5.0); SODIUM 139 MMOL/L (135-145); TOTAL PROTEIN 6.4 GM/DL (6.4-8.2)
[2018-12-13 08:00] VITALS: BP 113/70
[2018-12-13] MEDS ORDERED: IBUP-30 PO (08:46)
[2018-12-13] MEDS ORDERED: METH27TA4 PO (08:46)
[2018-12-13] MEDS ORDERED: CIPR500T4 PO (08:46)
[2018-12-13] MEDS ORDERED: GADOBUTROL 10 MMOL/10 ML (GADAVIST) VIAL IV ONE (11:45)
[2018-12-13 12:00] VITALS: BP 95/62
--- NOTE | 2018-12-13 12:38 | Diagnostic Imaging Report ---
PROCEDURE: MR imaging of the brain with and without contrast. TECHNIQUE: Multiplanar, multisequence MR imaging of the brain was performed with and without contrast. INDICATION: Possible seizure and syncope. The ventricles and sulci are within normal limits. No diffusion restriction is seen. The normal expected flow-voids within the carotid siphons are seen. There is no midline shift. No acute intra-axial or extra-axial hemorrhage is detected. No abnormal enhancement is seen following contrast administration. Corpus callosum is unremarkable. Sella and parasellar structures are unremarkable. Hippocampal formations appear unremarkable. IMPRESSION: Unremarkable pre-and postcontrast MRI of the brain. Dictated by: Dictated on workstation # [id number]
--- NOTE | 2018-12-13 13:53 | Discharge Instructions ---
Discharge [facility] Discharge Medications Continued Medications: Ibuprofen (Advil) 200 Mg Tablet 800 MG PO Q8H PRN for PAIN-MILD, TAB Methylphenidate HCl (Concerta) 27 Mg Tab.er.24 27 MG PO DAILY PRN for ATTENTION, TAB Discontinued Medications: Ciprofloxacin HCl (Ciprofloxacin HCl) 500 Mg Tablet 500 MG PO BID for 10 Days, TAB 10 DAY SUPPLY FILLED 12-03-18 Patient Instructions Goal/Follow Up Appt: Follow up with Elizabeth Pike at [facility] on 12/19 at 940 am. Return to [facility] For: Fever, confusion, passing out Activity & Diet Discharge Diet: No Restrictions Activity as Tolerated: No (No driving, no bathing or swimming unattended until follow up) Copy Copies To 1: ERIC Taylor BETHANY N MD Dec 13, 2018 13:53
[2018-12-13 14:15] VITALS: BP 95/62
--- NOTE | 2018-12-13 19:04 | Short Stay Summary ---
History of Present Illness History of Present Illness Reason for visit/HPI 23 yo female came to ER after she had an episode of loss of consciousness. She says she woke up not feeling well and felt somewhat sick to her stomach. She rested and felt a little better. Took a hot shower and then woke up in cold water, she denies dizziness, chest pain or symptoms prior. She has no personal history of seizure, but has a biological sibling with epilepsy. She has had syncope about 4 years ago which was worked up with what sounds like MRI, echocardiogram and Holtor monitor and she reports nothing was found. She was on cipro for several days prior to this for a skin infection. Date of Admission Dec 12, 2018 at 16:48 Date of Discharge Dec 13, 2018 at 14:15 Time Seen by Provider: 09:32 Attending Physician Shraddha Powell MD Admitting Physician [facility] [place] Consult Allergies and Home Medications Allergies Coded Allergies: No Known Drug Allergies (Unverified , 08/15/15) Home Medications Ibuprofen 200 Mg Tablet, 800 MG PO Q8H PRN for PAIN-MILD, (Reported) Methylphenidate HCl 27 Mg Tab.er.24, 27 MG PO DAILY PRN for ATTENTION, (Reported ) Patient Home Medication List Home Medication List Reviewed: Yes Past Nwmcqib-Qcnkep-Xotqmh Hx Patient Social History Alcohol Use: Occasionally Uses Recreational Drug Use: Yes (THC positive on admission) Smoking Status: Never a Smoker Recent Foreign Travel: No Contact w/other who traveled: No Recent Hopitalizations: No Recent Infectious Disease Expo: No Surgeries Yes Gallbladder, Orthopedic Respiratory No Cardiovascular No Neurological No Reproductive System : No Hx Reproductive Disorders: No Gastrointestinal No Musculoskeletal No Cancer No Psychosocial History of Psychiatric Problem: Yes Behavioral Health Disorders: ADD/ADHD Family Medical History Significant Family History: Seizures Review of Systems Constitutional: No fever; malaise EENTM: No nose congestion Respiratory: No cough, No short of breath Cardiovascular: No chest pain Gastrointestinal: No abdominal pain, No constipation, No diarrhea; nausea; No vomiting Genitourinary: no symptoms reported Musculoskeletal: no symptoms reported Skin: no symptoms reported Psychiatric/Neurological: No Symptoms Reported Physical Exam Vital Signs Vital Signs - First Documented 12/12/18 12/12/18 12:04 19:43 Temp 97.9 Pulse 89 Resp 18 B/P (MAP) 139/79 (99) Pulse Ox 98 O2 Delivery Room Air Capillary Refill : Less Than 3 Seconds Height, Weight, BMI Height: 5'11.00" Weight: 248lbs. 0.0oz. 112.055454cj; 34.6 BMI Method:Stated General Appearance: No Apparent Distress, WD/WN HEENT: PERRL/EOMI Respiratory: Normal Breath Sounds, No Accessory Muscle Use Cardiovascular: Regular Rate, Rhythm, No Murmur Gastrointestinal: Normal Bowel Sounds, Non Tender, Soft Extremity: No Pedal Edema Neurologic/Psychiatric: Alert, Oriented x3, Normal Mood/Affect, joy operator helper II-XII Norm as Tested; No Abnormal Cerebellar Tests, No Facial Droop, No Motor Weakness Skin: Normal Color, Warm/Dry Clinical Quality Measures DVT/VTE Risk/Contraindication: Risk Factor Score Per Nursin RFS Level Per Nursing on Admit: 4+=Very High Short Stay Diagnosis Discharge Diagnosis-Short Stay Admission Diagnosis: Syncope Final Discharge Diagnosis: Syncope- syncope vs seizure, has had work-up negative in past, suspect syncope related to her hot shower/venous pooling. Labs unremarkable. MRI this visit unremarkable and echocardiogram unremarkable except interatrial septum not adequately visualized. Instructed to not drive or bathe/swim without supervision. Conclusion Labs Laboratory Tests 12/13/18 05:30: White Blood Count 4.4, Red Blood Count 4.21L, Hemoglobin 12.8, Hematocrit 36, Mean Corpuscular Volume 87, Mean Corpuscular Hemoglobin 30, Mean Corpuscular Hemoglobin Concent 35, Red Cell Distribution Width 11.8, Platelet Count 275, Mean Platelet Volume 9.4, Neutrophils (%) (Auto) 27L, Lymphocytes (%) (Auto) 60H , Monocytes (%) (Auto) 10, Eosinophils (%) (Auto) 3, Basophils (%) (Auto) 1, Neutrophils # (Auto) 1.2L, Lymphocytes # (Auto) 2.7, Monocytes # (Auto) 0.4, Eosinophils # (Auto) 0.1, Basophils # (Auto) 0.0, Sodium Level 139, Potassium Level 3.8, Chloride Level 110H, Carbon Dioxide Level 21, Anion Gap 8, Blood Urea Nitrogen 10, Creatinine 0.77, Estimat Glomerular Filtration Rate > 60, BUN/ Creatinine Ratio 13, Glucose Level 89, Calcium Level 8.4L, Corrected Calcium 8.6 , Total Bilirubin 0.3, Aspartate Amino Transf (AST/SGOT) 20, Alanine Aminotransferase (ALT/SGPT) 23, Alkaline Phosphatase 58, Total Protein 6.4, Albumin 3.7 Conclusion/Plan See discharge diagnosis Copy Copies To 1: ERIC Taylor BETHANY N MD Dec 13, 2018 19:04
== END 2018-12-13 13:49 | disposition home or self-care (01) ==
LOC: EDUNIT# 11:01 → ER 11:02 → 4TH 16:48 → UNDOADMOB 16:48 → 4TH 17:58 → UNDODISOB 12-13 14:15
PROVIDERS: ADMIT Family Medicine; ATTEND Family Medicine
DX: R55 Syncope and collapse (principal); R51 Headache; M54.2 Cervicalgia; F90.9 Attention-deficit hyperactivity disorder, unspecified type; W18.2XXA Fall in (into) shower or empty bathtub, initial encounter; Y93.E1 Activity, personal bathing and showering; Z79.899 Other long term (current) drug therapy
CPT/HCPCS: 36415; 70450; 70553; 71045; 72125; 80053; 80306; 80320; 80329; 81000; 84443; 84484; 84703; 85025; 93005; 93306

== ENCOUNTER 2019-12-10 07:50 | Emergency (ER) | payer SELFPAY ==
[~2019-12-10] VITALS: Ht 177.8 cm; Wt 104.0 kg
[~2019-12-10 07:50] MED LIST changes: +CIPR500T4 PO; +CIPR500T78 PO; +IBUP-30 PO; +METH27TA4 PO
--- NOTE | 2019-12-10 08:06 | ED Cough/URI ---
General Chief Complaint: Cough/Cold/Flu Symptoms Stated Complaint: SOA Source: patient Exam Limitations: no limitations History of Present Illness Date Seen by Provider: Dec 10, 2019 Time Seen by Provider: 08:07 Initial Comments 24-year-old female presents with what she feels like his some shortness of breath, generalized malaise and not feeling well. Patient was diagnosed with influenza couple days ago. Patient can't remember exactly when but thinks maybe last Sunday. Patient comes in because she feels like she does have some problems catching her breath. She has a subjective fever. No wheezing. Still has a cough. Allergies and Home Medications Allergies Coded Allergies: No Known Drug Allergies (Unverified , 08/15/15) Home Medications Ibuprofen 200 Mg Tablet, 800 MG PO Q8H PRN for PAIN-MILD, (Reported) Methylphenidate HCl 27 Mg Tab.er.24, 27 MG PO DAILY PRN for ATTENTION, (Reported) Patient Home Medication List Home Medication List Reviewed: Yes Review of Systems Review of Systems Constitutional: malaise EENTM: no symptoms reported Respiratory: cough, short of breath Cardiovascular: No chest pain Gastrointestinal: no symptoms reported Skin: no symptoms reported Psychiatric/Neurological: No Symptoms Reported Hematologic/Lymphatic: No Symptoms Reported Past Hgvpqbd-Meitvc-Ayddza Hx Past Med/Social Hx: Reviewed Nursing Past Med/Soc Hx Patient Social History Recent Foreign Travel: No Contact w/Someone Who Travel: No Recent Hopitalizations: No Past Medical History Surgeries: Yes Gallbladder, Orthopedic Respiratory: No Cardiac: No Neurological: No Reproductive Disorders: No Sexually Transmitted Disease: No HIV/AIDS: No Genitourinary: No Gastrointestinal: No Musculoskeletal: No Endocrine: No HEENT: No Cancer: No Psychosocial: Yes ADD/ADHD Family Medical History Seizures Physical Exam Vital Signs - First Documented 12/10/19 12/10/19 07:52 08:24 Temp 36.6 Pulse 100 Resp 18 B/P (MAP) 142/108 (119) Pulse Ox 100 O2 Delivery Room Air Capillary Refill : Height: 5'11.00" Weight: 248lbs. 0.0oz. 112.629954fi; 34.6 BMI Method:Stated General Appearance: WD/WN, no apparent distress HEENT: PERRL/EOMI, normal ENT inspection, TMs normal Neck: supple, normal inspection Respiratory: lungs clear, normal breath sounds, no respiratory distress Cardiovascular: normal peripheral pulses, regular rate, rhythm Gastrointestinal: non tender, soft Neurologic/Psychiatric: alert, normal mood/affect, oriented x 3 Skin: normal color, warm/dry Progress/Results/Core Measures Suspected Sepsis SIRS Temperature: Pulse: Respiratory Rate: Blood Pressure / Mean: Results/Orders My Orders Orders - GILBERT PADRON DO Ed Iv/Invasive Line Start (12/10/19 08:08) Albuterol/Ipra Inhalation Soln (Duoneb I (12/10/19 08:15) Chest Pa/Lat (2 View) (12/10/19 08:08) Svn Small Volume Nebulizer (12/10/19 08:08) Ed Iv/Invasive Line Start (12/10/19 08:17) Ns Iv 1000 Ml (Sodium Chloride 0.9%) (12/10/19 08:17) Dexamethasone Injection (Decadron Inject (12/10/19 09:45) Ondansetron Injection (Zofran Injectio (12/10/19 09:45) Medications Given in ED Current Medications Medications Dose Ordered Sig/Tulio Route Start Time Stop Time Status Last Admin Dose Admin Albuterol/ Ipratropium 3 ml ONCE ONCE INH 12/10/19 08:15 12/10/19 08:16 DC 12/10/19 08:23 3 ML Dexamethasone Sodium Phosphate 10 mg ONCE ONCE IV 12/10/19 09:45 12/10/19 09:46 DC 12/10/19 09:55 10 MG Ondansetron HCl 4 mg ONCE ONCE IVP 12/10/19 09:45 12/10/19 09:46 DC 12/10/19 09:57 4 MG Vital Signs/I&O 12/10/19 12/10/19 12/10/19 07:52 08:24 10:04 Temp 36.6 Pulse 100 103 Resp 18 18 B/P (MAP) 142/108 (119) 110/78 Pulse Ox 100 99 100 O2 Delivery Room Air Room Air Capillary Refill : Progress Note : Time: 09:31 Progress Note Patient feeling much better following treatment. No pneumonia appreciated on x-r ay. Patient to be discharged home with albuterol inhaler to be used as needed. Patient is stable upon discharge. Patient already has a prescription for albuterol inhaler that she is been using along with a prescription for Zofran she has not picked up. I will give her a steroid shot to help with some lung inflammation and likely an underlying reactive airway disease to Diagnostic Imaging Diagonstic Imaging: Xray Plain Films/CT/US/NM/MRI: chest Comments [place] NAME: KIRAN RUSSO [facility] REC#: [id number] PT STATUS: REG ER : 1995 PHYSICIAN: GILBERT PADRON DO ADMIT DATE: 12/10/19/ER Draft Date of Exam:12/10/19 CHEST PA/LAT (2 VIEW) EXAMINATION: PA and lateral chest at 9:20 a.m. INDICATION: Shortness of breath. FINDINGS: The heart size is within normal limits and the heart does seem less prominent than noted on the prior exam of 12/12/2018. The lungs are clear. There is no sign of failure, pneumonia or pleural effusion. The mediastinum is not widened. The osseous structures are intact. IMPRESSION: There is no evidence for active disease. Reviewed: Reviewed by Me, Reviewed/Discussed Departure Impression Primary Impression: Influenza Disposition: HOME, SELF-CARE Condition: Stable Departure-Patient Inst. Referrals: [facility] (PCP/Family) Primary Care Physician Patient Instructions: Flu, Adult (DC) Add. Discharge Instructions: You may use your inhaler every 4 hours as needed while in the acute phase of your respiratory illness/influenza Follow-up with your primary care provider by Sunday if no improvement Emergency department focuses on treating and ruling out life-threatening diseases. Whenever possible, a diagnosis is given. However, most patients are given an impression based on their history, physical exam, and workup during your brief time in the ER. Information about probable diagnosis and other educational material has been provided. Please take the time to read and understand this information. It is very important that you follow up with a physician as discussed during the visit today. Failure to adhere to your follow-up instructions may lead to severe disability, injury, or so please make sure to keep your appointments or obtain one as requested. Please keep in mind the emergency department is not designed to your primary care or "family doctor" and nonurgent issues are best evaluated by an outpatient physician All discharge instructions reviewed with patient and/or family. Voiced understanding. GILBERT PADRON DO Dec 10, 2019 08:06
[2019-12-10] MEDS ORDERED: RT-ALBUTEROL/IPRATROPIUM 3 ML (DUONEB) VIAL INH ONE (08:15)
[2019-12-10] MEDS ORDERED: NS IV 1000 ML 1,000 ML IV SCH (08:17)
--- NOTE | 2019-12-10 09:37 | Diagnostic Imaging Report ---
EXAMINATION: PA and lateral chest at 9:20 a.m. INDICATION: Shortness of breath. FINDINGS: The heart size is within normal limits and the heart does seem less prominent than noted on the prior exam of 12/12/2018. The lungs are clear. There is no sign of failure, pneumonia or pleural effusion. The mediastinum is not widened. The osseous structures are intact. IMPRESSION: There is no evidence for active disease. Dictated by: Dictated on workstation # [id number]
[2019-12-10] MEDS ORDERED: ONDANSETRON 4 MG/2 ML (SDV) Z0FRAN IVP ONE (09:45)
[2019-12-10] MEDS ORDERED: DEXAMETHASONE 10 MG/ML (DECADRON) 1 ML VIAL IV ONE (09:45)
[2019-12-10 10:04] VITALS: BP 110/78
== END 2019-12-10 10:04 | disposition home or self-care (01) ==
LOC: EDUNIT# 07:50 → ER 07:51
DX: J11.1 Influenza due to unidentified influenza virus with other respiratory manifestations (principal); F90.9 Attention-deficit hyperactivity disorder, unspecified type
CPT/HCPCS: 71046; 94640